=== PATIENT | female | born 1960 | race Caucasian/White ===

== ENCOUNTER 2024-05-28 06:24 | Day surgery (SDC) | payer BC, SELFPAY | END 2024-05-28 13:16 | disposition home or self-care (01) | LOC: GI 06:24 | PROVIDERS: ATTENDING PHYSICIAN Internal Medicine | DX: Z12.11 Encounter for screening for malignant neoplasm of colon (principal); D12.2 Benign neoplasm of ascending colon; K63.5 Polyp of colon; Q43.8 Other specified congenital malformations of intestine; R13.10 Dysphagia, unspecified; R12 Heartburn; K64.9 Unspecified hemorrhoids; K22.4 Dyskinesia of esophagus; K22.2 Esophageal obstruction; K44.9 Diaphragmatic hernia without obstruction or gangrene; Z83.719 Family history of colon polyps, unspecified | CPT/HCPCS: 45380; 43239; 88305 ==

== ENCOUNTER 2024-12-30 11:01 | Outpatient (RCR) | payer BC, SELFPAY | END 2024-12-30 23:59 | disposition home or self-care (01) | LOC: RPT 11:01 | PROVIDERS: ATTENDING PHYSICIAN Internal Medicine; FAMILY PHYSICIAN Internal Medicine | DX: K59.00 Constipation, unspecified (principal); M62.89 Other specified disorders of muscle; Z73.6 Limitation of activities due to disability; R35.0 Frequency of micturition | CPT/HCPCS: 97014; 97110; 97112; 97140; 97163; 97530 ==

== ENCOUNTER 2025-02-06 14:09 | Outpatient (RCR) | payer BC, SELFPAY | END 2025-02-06 23:59 | disposition home or self-care (01) | LOC: RPT 14:09 | PROVIDERS: ATTENDING PHYSICIAN Internal Medicine; FAMILY PHYSICIAN Internal Medicine | DX: K59.00 Constipation, unspecified (principal); M62.89 Other specified disorders of muscle; Z73.6 Limitation of activities due to disability; R35.0 Frequency of micturition | CPT/HCPCS: 97014; 97112; 97140; 97530 ==

== ENCOUNTER 2025-02-24 07:21 | Outpatient (RCR) | payer BC, SELFPAY | END 2025-02-24 23:59 | disposition home or self-care (01) | LOC: RPT 07:21 | PROVIDERS: ATTENDING PHYSICIAN Internal Medicine; FAMILY PHYSICIAN Internal Medicine | DX: K59.00 Constipation, unspecified (principal); M62.89 Other specified disorders of muscle; Z73.6 Limitation of activities due to disability; R35.0 Frequency of micturition | CPT/HCPCS: 97014; 97112; 97140; 97530 ==

== ENCOUNTER 2025-04-16 13:41 | Outpatient (RCR) | payer BC, SELFPAY | END 2025-04-16 23:59 | disposition home or self-care (01) | LOC: RPT 13:41 | PROVIDERS: ATTENDING PHYSICIAN Internal Medicine; FAMILY PHYSICIAN Internal Medicine | DX: K59.00 Constipation, unspecified (principal); M62.89 Other specified disorders of muscle; Z73.6 Limitation of activities due to disability; R35.0 Frequency of micturition | CPT/HCPCS: 97014; 97112; 97140; 97530 ==